=== PATIENT | male | born 1985 | race Two or more races ===

== ENCOUNTER 2022-07-11 23:54 | Emergency (ER) | payer OTHER ==
[~2022-07-11] VITALS: Ht 180.3 cm; Wt 94.3 kg
[2022-07-12] MEDS ORDERED: CEPHALEXIN500 MG PO (04:26)
[2022-07-12] MEDS ORDERED: KETO10TA2 PO (04:26)
== END 2022-07-12 | disposition home or self-care (01) ==
LOC: ER 23:54
DX: S01.21XA Laceration without foreign body of nose, initial encounter (principal); W45.8XXA Other foreign body or object entering through skin, initial encounter; Y93.9 Activity, unspecified; Y92.9 Unspecified place or not applicable